=== PATIENT | female | born 1940 | race Caucasian/White ===

== ENCOUNTER 2021-10-20 01:14 | Outpatient (CLI) | payer MEDICARE, SELFPAY ==
--- NOTE | 2021-10-20 | DI.NM_ITS ---
APPROVED REPORT Exam: Exercise Treadmill Patient Location: Out-Patient Room/Bed: Stress Nurse: Cadence Mosquera RN Ordering Provider:SINA ONEILL MD Contact Number: [phone] BMI: 28.33 Baseline Rhythm: Sinus Rhythm, 1DHB Indications: Dyspnea Medical History Medical History: Hypertension, hyperlipidemia, dyspnea, depression, anxiety, arthropathia, diverticul itis, stenosis Cardiac Medications: Furosemide Allergies: NKA Cardiac Risk Factors: Hypertension, hyperlipidemia, family hx Previous Cardiac Procedures: PCI -2010 Pretest Chest Pain Characteristics: None Exercise History: Sedentary Physical Disabilities: L ankle Lung Sounds: Clear to auscultation Heart Sounds: Regular Stress Test Details Test: , Exercise stress testing was performed using a Cristobal protocol. Nuclear Acquisition: Rest Tc-99m/Stress Tc-99m 1 day Rest Isotope: Tc-99m Sestamibi. Dose: 10.7 Date: 10/20/2021 Injection Time: 0840 Stress Isotope: Tc-99m Sestamibi. Dose: 29.3 Date: 10/20/2021 Injection Time: 1100 HR Resting HR Supine: 75 bpm Max Heart Rate (APMHR): 139.687832 bpm Resting HR Standin bpm Target HR (85% APMHR): 118.713003 bpm Max HR Achieved: 122 bpm % of APMHR: 87.77 Recovery HR: 77 bpm HR response to stress: Normal HR response to stress BP Resting BP Supine: 144/80 mmHg Resting BP Standin/82 mmHg Max BP: 148/86 mmHg Recovery BP: 138/80 mmHg BP response to stress: Normal blood pressure response to stress. ECG Resting ECG: Sinus Rhythm, 1DHB Ectopy: PAC Stress ECG: Sinus Tachycardia, 1DHB ST Change: No significant ST segment changes noted Arrhythmia: None Recovery ECG: Sinus Rhythm, 1DHB Recovery ST Change: No significant ST segment changes noted Recovery Arrhythmia: Frequent PACs Clinical Reason for Termination: Fatigue, Dyspnea Stress Symptoms: General Fatigue, Dyspnea, Chest heaviness Exercise duration: 4 min13 sec Highest Stage Reached: Stage 2: 2.5 mph at 12% grade. Exercise capacity: 5.42 METs Jimenez Treadmill Score: -0.3 Rate Pressure Product: 30617 Stress ECG Conclusion 1. Resting electrocardiogram showed first-degree AV block 2. Patient exercised on the treadmill to a workload of 5.42 METS, Cristobal protocol 3. Normal heart rate and blood pressure response to exercise. Patient achieved 87% of predicted hear t rate for age 4. Electrocardiographically the test was negative for myocardial ischemia 5. Frequent premature atrial contractions were noted Jimenez Treadmill Score is -0.3 which is Moderate risk. Stress Test Summary STAGE Time (mins) Speed (mph) Grade (%) HR BP SYMPTOMS METS Supine 75 144/80 Standing 85 146/82 Baseline mild SOB, SpO2 97% 1 3 1.7 10 119 148/86 Mild chest heaviness, SpO2 96% 4.6 2 6 2.5 12 Moderate chest heavines and SOB, SpO2 96% 7 1 min recovery 103 146/84 Symptoms resolved, SpO2 97% 3 min recovery 82 148/82 SpO2 98% 6 min recovery 77 138/80 SpO2 98% After injection of nuc med, treadmill speed decreased from 2.5 mph to 2.3 mph and grade decreased fro m 12% to 10% so pt can maintain exercise for 1 minute. MPI Conclusion Normal myocardial perfusion without evidence of ischemia or prior infarction EF 60%, normal wall motion Radiologist Interpretation Radiologist Interpretation by: Ibrahima Lam MD Interpretation Date/Time: 10/21/2021 16:03:23
== END 2021-10-20 01:34 ==
PROVIDERS: Visit Provider Internal Medicine Interventional Cardiology
DX: R06.00 Dyspnea, unspecified (principal); I10 Essential (primary) hypertension; E78.5 Hyperlipidemia, unspecified; Z82.49 Family history of ischemic heart disease and other diseases of the circulatory system; I49.1 Atrial premature depolarization; I44.0 Atrioventricular block, first degree
CPT/HCPCS: 78452; 93016; 93018; 93017

== ENCOUNTER 2024-10-21 14:15 | Outpatient (CLI) | payer MEDICARE, SELFPAY ==
--- NOTE | 2024-10-21 06:00 | DI.RAD_ITS ---
Exam(s) XR PAIN CLINIC SACRIOILIAC 2V EXAM: XR PAIN CLINIC SACRIOILIAC 2V CLINICAL HISTORY: DX: Sacroiliac Dysfunction. TECHNIQUE: Fluoroscopy was provided for the referring physician for guidance with performing pain cl inic injection procedure. COMPARISON: No exams were available for comparison FINDINGS: Please see procedure note for details. Fluoro time: 52.7 seconds RADIATION DOSE DELIVERED: Ka,r=14.9 mGy
--- NOTE | 2024-10-21 14:31 | PDOC.PAIN ---
Date of service: 10/21/24 Time of Service: 15:13 Pain Managment Procedure Note Procedure Note Procedure Note: ?Sacroiliac Joint Steroid Injection ? Location: Bilateral SI Joints? Pre-procedure Diagnosis: Sacroiliitis, not elsewhere classified - M46.1 ? Post-procedure Diagnosis:? The same as above ? Sedation:? NONE ? Medication: Depo-Medrol 40 mg, bupivacaine 0.5% 1 mL, Omnipaque 0.25 mL per joint ? Estimated blood loss:? less than 2 cc ? Surgeon:? Rj Medellin MD ? COMMENT: THIS WILL BE BOTH DIAGNOSTIC AND THERAPEUTIC ? Procedure Detail:? The procedure and potential risks were explained to the patient and informed written consent was obtained. The patient was escorted to the procedure room and placed in the prone position. Pillows were utilized for proper positioning and comfort. Time out was performed in the procedure room with nursing staff confirming the patient's identity, procedure to be performed, allergies, and any blood thinning or anti-platelet medications. The patient's lumbosacral area was prepped with ChloraPrep and draped in a sterile fashion. Sterile technique was maintained throughout the procedure.? Sterile gloves were used, a face mask was worn, and new single dose vials of all medications were used with the top being swabbed with alcohol and given time to dry prior to withdrawal of medication. Lidocaine 1% was used to anesthetize the skin. With fluoroscopic guidance, a 22-gauge 3.5 spinal needle was advanced into the posteroinferior aspect of the Bilateral SI joint. Confirmation of extra--articular position of the needle tip was obtained with injection of 0.25cc of Omnipaque 240 contrast which showed appropriate spread .? Following negative aspiration, 40mg of methylprednisolone mixed with 1 mL of bupivacaine 0.5% was injected.? The needle was gently removed. ?The patient tolerated the procedure well and was transported to the recovery area for observation and discharge instructions.? Permanent images saved and recorded. Plan:? Follow up prn. PAIN PRE PROCEDURE 6/10 POST PROCEDURE 0/10 COMMENT: [80] % BETTER AFTER INJECTION. Patient's MRI does show some moderate to severe spinal stenosis at L3-4 as well as right-sided foraminal stenosis at that level. Consider transforaminal steroid injection, L3
[2024-10-21 14:34] VITALS: BP 148/103; PULSE 61; RESP 20; TEMP 36.6; O2SAT 99
[2024-10-21 14:59] VITALS: O2SAT 100
[2024-10-21 15:00] VITALS: O2SAT 97
[2024-10-21] MEDS: Omnipaque 240 MG/ML 50 ML BTL IJ (15:15)
[2024-10-21] MEDS: Bupivacaine 0.5% Pres-Free 10 ML VIAL IJ (15:16)
[2024-10-21] MEDS: methylPREDNISolone ACETATE 80 MG/ML VIAL IJ (15:16)
[2024-10-21] MEDS: Nerve Block Tray 1 EACH MC (15:16)
== END 2024-10-21 14:16 | disposition home or self-care (01) ==
LOC: PC 14:15
PROVIDERS: Visit Provider Anesthesiology Pain Medicine
DX: M54.50 Low back pain, unspecified (principal); M46.1 Sacroiliitis, not elsewhere classified
CPT/HCPCS: 00123; 27096; 72200; J0665; J1010; Q9967